=== PATIENT | female | born 1970 | race Caucasian/White ===

== ENCOUNTER → 2016-11-14 | Outpatient (CLI) | payer OTHER ==
[~2016-11-14] VITALS: Ht 160 cm; Wt 106.5 kg
[~2016-11-14] MED LIST: BIOTIN1 MG PO; COZAAR25 MG PO; CYANOCOBALAM1000 MCG PO; DAILY VITE1 EAC1 PO; GRALISE600 MG PO; HYZAAR 100-21 TABLET PO; MAXALT10 MG PO; OMEPRAZOLE40 M1 PO; PLAVIX75 MG PO; RELPAX40 MG PO; SYNTHROID50 MCG PO; VITAMIN D35000 UNIT PO
== END | disposition home or self-care (01) ==
LOC: AMB 11:00
PROC: 0DJ08ZZ Inspection of Upper Intestinal Tract, Via Natural or Artificial Opening Endoscopic (ICD-10-PCS; principal; 2016-11-14)
DX: K44.9 Diaphragmatic hernia without obstruction or gangrene (principal); K21.9 Gastro-esophageal reflux disease without esophagitis; E03.9 Hypothyroidism, unspecified; I10 Essential (primary) hypertension; R73.01 Impaired fasting glucose; E78.5 Hyperlipidemia, unspecified; E66.9 Obesity, unspecified; E53.8 Deficiency of other specified B group vitamins; E55.9 Vitamin D deficiency, unspecified; Z68.41 Body mass index [BMI] 40.0-44.9, adult; Z88.6 Allergy status to analgesic agent; Z88.5 Allergy status to narcotic agent; Z82.49 Family history of ischemic heart disease and other diseases of the circulatory system; Z80.3 Family history of malignant neoplasm of breast
CPT/HCPCS: J2250

== ENCOUNTER 2017-01-03 08:37 | Inpatient (IN) | payer OTHER ==
[~2017-01-03] VITALS: Ht 160 cm; Wt 111.0 kg
[~2017-01-03 08:37] MED LIST changes: +BIOTIN SL; +FLINTSTONES1 EACH PO; +VITAMIN B12 SL; +VITAMIN D3 SL
[2017-01-03] MEDS ORDERED: VITAMIN D-32000 UNI2 PO (09:15)
[2017-01-03 09:20] VITALS: BP 136/67
[2017-01-03 10:14] LABS: POINT-OF-CARE METER ID UU14174212
[2017-01-03 13:46] VITALS: BP 169/88
[2017-01-03 16:15] VITALS: BP 140/71
[2017-01-03 19:35] VITALS: BP 138/77
[2017-01-03 23:32] VITALS: BP 121/67
[2017-01-04 04:12] VITALS: BP 135/75
[2017-01-04 06:57] LABS: MCH 29.7 PG (29.0-34.0); MCHC 32.3 G/DL (30.0-36.0); MCV 92.2 FL (83-99); MEAN PLAT.VOLUME 9.8 uM^3 (9.5-12.4); PLATELET COUNT 254 K/uL (156-360); RBC DIS.WIDTH-CV 13.3 % (11.8-14.6); RBC DIS.WIDTH-SD 45.2 % (39-53); RED BLOOD COUNT 4.34 M/uL (3.80-5.20)
[2017-01-04 07:10] LABS: WHITE BLOOD COUNT 10.1 K/uL (4.1-10.2)
[2017-01-04] MEDS ORDERED: ENDOCET 5-3251 EACH PO (07:16)
[2017-01-04 07:18] LABS: ANION GAP 10 MEQ/L (2-14); CHLORIDE 100 MEQ/L (99-109); GFR ESTIMATE (CALCULATED) > 59 mL/min/; GLUCOSE 116 mg/dL (70-99); MAGNESIUM 1.8 mg/dl (1.3-2.7); POTASSIUM 3.9 MEQ/L (3.7-5.4); SAMPLE HEMOLYSIS CHECK 0; SAMPLE ICTERIC CHECK 0; SAMPLE LIPEMIA CHECK 0; SODIUM 138 MEQ/L (136-147); UREA NITROGEN (BUN) 11 mg/dL (9-23)
[2017-01-04 07:55] VITALS: BP 150/90
[2017-01-04 11:45] VITALS: BP 163/96
[2017-01-04 11:59] LABS: POINT-OF-CARE USER ID STWLMB34
== END 2017-01-04 16:48 | disposition home or self-care (01) | DRG 621 ==
LOC: 2SOUTH 08:37 → 2EASTP 13:37
PROVIDERS: Surgery
PROC: 0DB64Z3 Excision of Stomach, Percutaneous Endoscopic Approach, Vertical (ICD-10-PCS; principal; 2017-01-03)
DX: E66.01 Morbid (severe) obesity due to excess calories (principal); Z68.41 Body mass index [BMI] 40.0-44.9, adult; I10 Essential (primary) hypertension; E03.9 Hypothyroidism, unspecified; G47.30 Sleep apnea, unspecified; K21.9 Gastro-esophageal reflux disease without esophagitis
CPT/HCPCS: 80048; 82948; 83735; 84100; 85027; J0330; J0690; J1100; J1170; J1644; J1650; J1815; J1885; J2405; J2765; J3010; J3480; J7120; S0020

== ENCOUNTER 2017-04-17 17:10 | Observation (INO) | payer OTHER ==
[~2017-04-17] VITALS: Ht 160 cm; Wt 83.4 kg
[~2017-04-17 17:10] MED LIST changes: +ENDOCET 5-3251 EACH PO; +VITAMIN D-32000 UNI2 PO
[2017-04-17 19:03] LABS: EOSINOPHIL (%) 0.7 % (0-5); HEMATOCRIT 30.2 % (36.0-46.0); IMMATURE GRANULOCYTE (%) 0.9 % (0.0-0.7); IMMATURE GRANULOCYTE COUNT 0.1 K/uL; INSTRUMENT ABS NEUTROPHIL CT 3.5 K/uL; LYMPHOCYTE COUNT 1.6 K/uL (1.0-2.8); MCH 30.9 PG (29.0-34.0); MCHC 32.5 G/DL (30.0-36.0); MEAN PLAT.VOLUME 9.6 uM^3 (9.5-12.4); MONOCYTE (%) 7.9 % (3-12); MONOCYTE COUNT 0.5 K/uL (0-0.8); NEUTROPHIL (%) 61.8 % (45-76); NEUTROPHIL COUNT 3.5 K/uL (1.8-6.4); PLATELET COUNT 351 K/uL (156-360); RBC DIS.WIDTH-CV 17.6 % (11.8-14.6); RBC DIS.WIDTH-SD 61.2 % (39-53); WHITE BLOOD COUNT 5.7 K/uL (4.1-10.2)
[2017-04-17 19:04] LABS: MCV 95.3 FL (83-99); RED BLOOD COUNT 3.17 M/uL (3.80-5.20)
[2017-04-17 19:11] LABS: CHLORIDE 104 mEq/L (99-109); POTASSIUM 4.3 mEq/L (3.7-5.4); SODIUM 140 mEq/L (136-147)
[2017-04-17 19:12] LABS: GLUCOSE 66 mg/dL (70-99)
[2017-04-17 19:14] LABS: ANION GAP 11 MEQ/L (2-14)
[2017-04-17 19:16] LABS: GFR ESTIMATE (CALCULATED) > 59 mL/min/
[2017-04-17 19:17] LABS: UREA NITROGEN (BUN) 5 mg/dL (9-23)
[2017-04-17 19:21] LABS: TROP-I INTERPRETATION NEGATIVE; TROPONIN-I < 0.01 ng/mL (0.0-0.30)
[2017-04-18] MEDS ORDERED: LOSARTAN POTAS100 MG PO (00:08)
[2017-04-18] MEDS ORDERED: TRANSDERM-SCOP1 EACH TD (00:09)
[2017-04-18] MEDS ORDERED: CARAFATE100 MG/ML PO (00:09)
[2017-04-18] MEDS ORDERED: PANTOPRAZOLE SO40 MG PO (00:10)
[2017-04-18] MEDS ORDERED: ONDANSETRON HCL4 MG PO (00:10)
[2017-04-18] MEDS ORDERED: COLACE100 MG PO (00:10)
[2017-04-18 01:16] VITALS: BP 152/84
[2017-04-18 01:35] LABS: TROP-I INTERPRETATION NEGATIVE; TROPONIN-I < 0.01 ng/mL (0.0-0.30)
[2017-04-18 04:00] VITALS: BP 139/81
[2017-04-18 06:05] LABS: HEMATOCRIT 29.3 % (36.0-46.0); MCH 32.2 PG (29.0-34.0); MCHC 33.4 G/DL (30.0-36.0); MCV 96.4 FL (83-99); MEAN PLAT.VOLUME 9.5 uM^3 (9.5-12.4); PLATELET COUNT 307 K/uL (156-360); RBC DIS.WIDTH-CV 18.1 % (11.8-14.6); RBC DIS.WIDTH-SD 63.6 % (39-53); RED BLOOD COUNT 3.04 M/uL (3.80-5.20); WHITE BLOOD COUNT 4.5 K/uL (4.1-10.2)
[2017-04-18 06:35] LABS: ANION GAP 13 MEQ/L (2-14); CHLORIDE 101 MEQ/L (99-109); GFR ESTIMATE (CALCULATED) > 59 mL/min/; GLUCOSE 57 mg/dL (70-99); POTASSIUM 4.1 MEQ/L (3.7-5.4); SAMPLE HEMOLYSIS CHECK 1; SAMPLE ICTERIC CHECK 0; SAMPLE LIPEMIA CHECK 0; SODIUM 138 MEQ/L (136-147); UREA NITROGEN (BUN) 4 mg/dL (9-23)
[2017-04-18 06:38] LABS: TROP-I INTERPRETATION NEGATIVE; TROPONIN-I < 0.01 ng/mL (0.0-0.30)
[2017-04-18] MEDS ORDERED: LASIX20 MG PO (08:04)
== END 2017-04-18 08:48 | disposition home or self-care (01) ==
LOC: EME 17:10 → EDOF 22:51 → ENRESERV 22:54 → 5WEST 04-18 01:03
PROVIDERS: Hospitalist; Physician Assistant
DX: R07.89 Other chest pain (principal); Z82.49 Family history of ischemic heart disease and other diseases of the circulatory system; R94.31 Abnormal electrocardiogram [ECG] [EKG]; I10 Essential (primary) hypertension; R60.0 Localized edema; M79.662 Pain in left lower leg; G43.909 Migraine, unspecified, not intractable, without status migrainosus; Z88.5 Allergy status to narcotic agent; Z88.6 Allergy status to analgesic agent
CPT/HCPCS: 71020; 71275; 80048; 84484; 85025; 85027; 85379; 93005; 93970; 99281; 99285; G0378; J1650

== ENCOUNTER → 2017-08-08 | Outpatient (CLI) | payer OTHER ==
[~2017-08-08] MED LIST changes: +CARAFATE100 MG/ML PO; +COLACE100 MG PO; +LASIX20 MG PO; +LOSARTAN POTAS100 MG PO; +ONDANSETRON HCL4 MG PO; +PANTOPRAZOLE SO40 MG PO; +TRANSDERM-SCOP1 EACH TD
== END | disposition home or self-care (01) ==
LOC: AMB 10:30
PROC: 0JB70ZZ Excision of Back Subcutaneous Tissue and Fascia, Open Approach (ICD-10-PCS; principal; 2017-08-08)
DX: L72.0 Epidermal cyst (principal)
CPT/HCPCS: 88304